=== PATIENT | male | born 1950 | race Caucasian/White ===

== ENCOUNTER 2025-04-25 08:02 | Day surgery (SDC) | payer OTHER, SELFPAY ==
[2025-03-27 10:20] LABS: % Basophils 1.1 % (0-2); % Eosinophils 1.6 % (0-6); % Immature Granulocytes 0.2 % (0-0.5); % Lymphocytes 25.4 % (20.5-51.1); % Monocytes 10.6 % (1.7-9.3); % Neutrophils 61.1 % (42.2-75.2); Absolute Basophils 0.1 10^3/uL (0-0.2); Absolute Eosinophils 0.1 10^3/uL (0-0.7); Absolute Lymphocytes 1.4 10^3/uL (1.2-3.4); Absolute Monocytes 0.6 10^3/uL (0.1-0.6); Absolute Neutrophils 3.5 10^3/uL (1.4-6.5); Hematocrit 42.8 % (39.0-52.0); Hemoglobin 14.8 g/dL (13.0-18.0); Mean Corp Hgb Conc. 34.6 g/dL (33.0-37.0); Mean Corpuscular Hgb 31.7 pg (27.0-31.0); Mean Corpuscular Volume 91.6 fL (80.0-94.0); Nucleated Red Blood Cells % 0 % (-); Platelet Count 191 10^3/uL (130-400); Red Blood Cell Count 4.67 10^6/uL (4.70-6.10); Red Cell Dist. Width 13.2 % (11.5-14.5); White Blood Cell Count 5.7 10^3/uL (4.8-10.8)
[2025-03-27 10:29] LABS: ALT (SGPT) 21 U/L (0-50); AST (SGOT) 22 U/L (17-59); Alkaline Phosphatase 50 U/L (38-126); Blood Urea Nitrogen 27 mg/dl (9-20); Calcium 9.2 mg/dl (8.4-10.2); Carbon Dioxide 27 mmol/L (22-30); Chloride 107 mmol/L (98-107); Glucose 72 mg/dl (70-99); Magnesium 1.8 mg/dl (1.6-2.3); Potassium 4.4 mmol/L (3.5-5.1); Sodium 141 mmol/L (135-145); eGFR > 60.00
[2025-03-27 10:31] LABS: INR 1.23; PT 15.8 Sec (11.4-14.6)
--- NOTE | 2025-03-27 11:14 | HPS.HSE ---
Family Physician
-
Family Physician: Vika Lopez
Chief Complaint
-
Persistent atrial fibrillation.
History of Present Illness
The patient is a 74 year old male presenting today for persistent atrial fibrillation. The patient reports a history of palpitations and lightheadedness likely secondary to this diagnosis. He previously underwent 3 cardioversions, with the
last occurring in September 2024, for his arrhythmia. Unfortunately, he has had an early recurrence of his atrial fibrillation after each procedure. He is currently on pharmacological therapy with Amiodarone. He does report GI side effects such as
intermittent diarrhea, bloating, and increased flatulence while on this medication. He previously could not tolerate Metoprolol due to excessive fatigue. He was also previously on Verapamil but this failed to control his arrhythmia. He does report
overall compliance with Eliquis for oral anticoagulation. He is interested in pursuing pulmonary vein isolation for more definitive arrhythmia management. He denies any current complaints today such as chest pain, shortness of breath, nausea,
vomiting, diarrhea, lightheadedness, dizziness, cough, sore throat, or fever.
Medical History
Past Medical History
Past Medical History: Reports Other
Additional Past Medical History:
1. Persistent atrial fibrillation, status post cardioversion x3; pharmacological therapy with Amiodarone and oral anticoagulation with Eliquis.
2. Hypertension.
3. Hyperlipidemia.
4. First degree AV block.
5. Obstructive sleep apnea, compliant with CPAP.
6. GERD.
7. Colon polyps.
8. Acute pancreatitis 12/2023.
9. Hemorrhoids.
10. Right parietal CVA, 2019, without residual deficits.
11. Osteoarthritis.
12. BPH.
13. Squamous cell carcinoma, nose, status post remote excision.
Past Surgical History: Reports Other
Additional Past Surgical History:
1. Cardioversion x3.
2. Right inguinal hernia repair.
3. Right ulnar nerve transposition.
4. Bilateral cataract extraction.
5. Colonoscopy x5.
Social History
Tobacco: Non-smoker
Alcohol: Other (Rare use reported. )
Personal:
Living: Other (He lives with his spouse in a 1 story home. )
Family History
Family History: Not pertinent
Allergies / Home Medications
Allergy/Medication List:
Home medications:
1. Amiodarone 200 mg p.o. daily.
2. Apixaban 5 mg p.o. twice a day.
3. Atorvastatin 40 mg p.o. at bedtime.
4. Loratadine 10 mg p.o. daily.
5. Multivitamin 1 tablet p.o. daily.
Allergies: Seasonal. No known drug allergies.
Review of Systems
-
A 12 point ROS was completed and negative except as noted: Yes
Physical Exam
Vital Signs
Blood pressure 144/97. Heart rate 48. Respirations 18. Pulse ox 99% on room air.
Height 6 feet, 4 inches. Weight 106.9 kg. BMI 28.7.
Physical Exam
General: Well Developed, Well Nourished and No Apparent Distress
HEENT: NormoCephalic, Moist mucous membranes, Atraumatic and PERRLA
Respiratory: Clear
Cardiac: Bradycardia
GI: Soft, Non Tender and Non Distended
Musculoskeletal: No Edema and Normal Gait & Station
Skin: Warm and Dry
Neuro: AO x 3 and Nonfocal/grossly intact
Laboratory Results
-
03/27/25 09:54
03/27/25 09:54
Laboratory Results
PT 15.8 Sec (11.4-14.6) H 03/27/25 09:54
INR 1.23 03/27/25 09:54
Total Bilirubin 1.0 mg/dl (0.2-1.3) 03/27/25 09:54
AST 22 U/L (17-59) 03/27/25 09:54
ALT 21 U/L (0-50) 03/27/25 09:54
Alkaline Phosphatase 50 U/L (38-126) 03/27/25 09:54
Type and screen O positive.
EKG 03/27/2025: Sinus bradycardia with first degree AV block. Left axis deviation.
Chest CT 03/27/2025: Short segment common vestibule for the left superior and inferior pulmonary veins, fairly commonly seen and considered normal variant. No evidence for left atrial thrombus.
Impression/Plan
-
IMPRESSION/PLAN:
1. Persistent atrial fibrillation: The patient is in need of pulmonary vein isolation with Dr. Vaibhav Alvarez on 04/25/2025. The benefits and risks of the procedure have been explained to the patient. The patient understands these risks and wishes to
proceed. He will not be required to undergo a pre-procedural transesophageal echocardiogram as he has been compliant with his home oral anticoagulation. He is aware to continue his Eliquis uninterrupted prior to his procedure. He will take no
medications the morning of his ablation.
[2025-03-27 13:14] VITALS: BMI 28.7
[2025-04-25] VITALS (13 sets, daily range): BP systolic 116–154; BP diastolic 59–90
[2025-04-25] MEDS: NSS 500 IV (09:39)
[2025-04-25 11:08] LABS: ACT-LR - POC 273 Seconds (116-155)
--- NOTE | 2025-04-25 11:46 | ITS.CL.ABL ---
[employer] Professor - Ablation
Ablation
Procedure Report:
ELECTROPHYSIOLOGY ABLATION STUDY
DATE:: April 25, 2025�����������������������������REFERRING: Dr. Jericho Callaway
INDICATION: Persistent supraventricular tachycardia in the form of atrial fibrillation. Failed cardioversion and amiodarone therapy
HISTORY: See H and P.��As above
ANTIARRHYTHMIC DRUG: Amiodarone causing GI distress
PRE-PROCEDURE JOHN PAUL: No atrial thrombus
PRESENTING RHYTHM: Sinus bradycardia
'TIME-OUT':��called and confirmed.
SEDATION/ANESTHESIA:��provided via the anesthesia department using general anesthesia (LMA).
INTRAVENOUS/ARTERIAL ACCESS:
Right femoral venous -8 Italian
Left femoral venous - 8 Fr, 6 Fr
Ultrasound guidance for bilateral femoral vein access was utilized by me to obtain access with demonstration of normal anatomy
CHADS-VASC Score:
HAS-Bled Score
PROCEDURE:
1.��A decapolar CS catheter was placed within the CS for mapping and pacing.��This was also used as the reference catheter for the 3-D map.
2. The intracardiac ultrasound catheter was positioned in the RA to identify the FO for targeting of transseptal puncture, assist��in identification of the pulmonary vein ostia, monitoring pre and post ablation pulmonary vein flow velocities,
monitoring for 'bubble' formation during RF application as a sign of thermal injury,��and to monitor for pericardial effusion during mapping and ablation procedure.���Left atrial size, LV ejection fraction, and pulmonary vein flows were monitored
pre and post ablation procedure. The other valves were inspected and found to be free of significant regurgitation or stenosis.
3.��Half of the calculated heparin bolus was administered prior to the first transeptal puncture.��Transseptal puncture was performed to diagnose RA and LA pressure so that safety of LA mapping and ablation could be further assessed, and to access
the left atrium and pulmonary veins for mapping and ablation.��This entailed advancing an 16.8 Italian sheath, RF wire, with dilator into the superior vena cava and withdrawing both (monitoring intracardiac ultrasound, fluoroscopy and tip pressure)
with the tip oriented toward the atrial septum.��The fossa ovalis was engaged (indicated by sudden displacement of the sheath tip as well as tenting of the fossa seen on intracardiac ultrasound).��Left atrial access required a pass with the
Brockenbrough needle extended.��Left atrial catheter position was confirmed by pressure monitoring (RA mean pressure 8 mm Hg and LA mean presure 12 mm Hg), LA saturation (99%),��as well as fluoroscopy.��The sheath was advanced over the dilator and
positioned in the left atrium.��The remainder of the calculated heparin bolus was administered and heparin was
infused to maintain ACT at 300 -350 seconds throughout the case.
4.��RA pacing was performed via the proximal decapolar poles and LA pacing was performed via the distal decapolar poles.
5. A quadrapolar catheter was first positioned at the His position for His Bundle recording which was tagged via the 3-D Navex sytem, and then passed to the RVA for RV pacing and recording.
6. The ablation catheter was positioned through one of the transeptal seaths and a 20 pole ring mapping catheter was positioned through the second seath into the LA and then the ostia of the LIPV, LSPV, RSPV and the RIPV.��
7.��Next, a 3-D map was created using Navex.���A 3-D reconstructed CT image was compared to the 3-D Navex map to assist in anatomic interpretation, mapping and ablation.��The CT image and the NavX image were fused.
8. A total of 48 lesions were given with all of pose in basket post each of the 4 pulmonary veins and the left pulmonary vein was a long common ostium inserting into the posterior wall. Segmental basket lesions were given to the posterior wall of
the common ostium. Flower post was given to the inferoseptum, roofline, posterior wall, and floor line with isolation of all 4 pulmonary veins with entrance and exit block as well as the roof posterior wall and floor of the left atrium.
9. Normal sinus node function noted. AV Wenckebach was noted at 490 ms with block and AH interval. Patient had baseline first-degree AV delay on amiodarone therapy
TOTAL FLOURO TIME: 16.1 minutes 143 mGy
TOTAL RF DURATION: 0 minutes
REVERSAL OF HEPARIN: 35 mg of protamine, slow IV administration
COMPLICATIONS:
None
Intracardiac US shows no pericardial effusion post ablation.
SUMMARY:��
Complex left atrial mapping and ablation.
Isolation of all 4 pulmonary veins with entrance and exit block, roofline, floor line, and posterior wall substrate were ablated and flower post leading to isolation of the roof posterior wall and floor of the left atrium.
RECOMMENDATIONS:
1. Ambulate 4 hours
2. Resume anticoagulation
3.� Discontinue amiodarone
4.��Consider same-day discharge
Copy to: Dr. Jericho Callaway
[2025-04-25] MEDS: TYLENOL 650 MG PO (12:04)
--- NOTE | 2025-04-25 15:51 | W.PN.UPDATE ---
Update Note
Progress Note Update
Pt seen post PFA. Bilat groin sites without ht/bleeding, non tender. OOB ambulating, urinating without difficulty. Post EKG SB 50s w/1st deg AVB as before, no acute changes. Resume eliquis tonight at usual time. Followup at [facility] as scheduled. Home
today if groin site/tele remain stable.
[2025-04-25] MEDS: ANESTHETIC LOZENGE 1 LOZENGE PO (16:28)
== END 2025-04-25 17:00 | disposition home or self-care (01) ==
LOC: CATH 08:02
PROVIDERS: ATTENDING PHYSICIAN Internal Medicine Cardiovascular Disease; FAMILY PHYSICIAN Family Medicine; OTHER PHYSICIAN Internal Medicine Cardiovascular Disease
DX: I48.19 Other persistent atrial fibrillation (principal); I47.10 Supraventricular tachycardia, unspecified; E78.5 Hyperlipidemia, unspecified; G47.33 Obstructive sleep apnea (adult) (pediatric); I10 Essential (primary) hypertension; M19.90 Unspecified osteoarthritis, unspecified site; N40.0 Benign prostatic hyperplasia without lower urinary tract symptoms; Z01.810 Encounter for preprocedural cardiovascular examination; Z79.01 Long term (current) use of anticoagulants; Z79.899 Other long term (current) drug therapy; Z86.0100 Personal history of colon polyps, unspecified; Z86.73 Personal history of transient ischemic attack (TIA), and cerebral infarction without residual deficits; Z87.19 Personal history of other diseases of the digestive system; Z98.890 Other specified postprocedural states; I44.0 Atrioventricular block, first degree
CPT/HCPCS: C1732; C1894; C1730; C1892; C1759; 36415; 75572; 80053; 83735; 85025; 85347; 85610; 86850; 86900; 86901; 93005; 93656; 93657; C1733; C1766; Q9967